=== PATIENT | male | born 1950 | race Caucasian/White ===

== ENCOUNTER → 2018-03-16 | Day surgery (SDC) | payer MEDICARE ==
[2018-03-15 10:00] LABS: BASOPHILS # (AUTO) 0.1 (0.0-0.1); BASOPHILS % 0.9 % (0.0-1.0); EOSINOPHILS # (AUTO) 0.2 (0.0-0.4); EOSINOPHILS % 2.6 % (0.0-6.0); HEMATOCRIT 43.4 % (38.2-49.6); HEMOGLOBIN 15.5 g/dL (14.0-18.0); LYMPHOCYTES # (AUTO) 1.2 (1.0-3.2); LYMPHOCYTES % 20.5 % (18.0-39.1); MEAN CORPUSCULAR HEMOGLOBIN 32.2 pg (28-32); MEAN CORPUSCULAR HGB CONC 35.7 g/dL (31-35); MEAN CORPUSCULAR VOLUME 90.2 fL (81-99); MONOCYTES # (AUTO) 0.3 (0.2-0.8); MONOCYTES % 5.6 % (4.4-11.3); NEUTROPHILS # (AUTO) 4.1 (2.1-6.9); NEUTROPHILS % 70.2 % (38.7-80.0); PLATELET COUNT 148 x10e3/uL (140-360); RED BLOOD COUNT 4.81 x10e6/uL (4.3-5.7); RED CELL DISTRIBUTION WIDTH 12.6 % (11.7-14.4)
[~2018-03-16] MED LIST: ALPRAZOLAM0.5 M1 PO; DICYCLOMINE HCL20 MG PO; FENTANYL CITRATE/PF 100MCG/2 ML INJ ONE; GABAPENTIN300 MG PO; LISINOPRIL-HCT1 EACH PO; METOCLOPRAMIDE10 MG PO; MIDAZOLAM HCL 2 MG/2 ML VIAL ONE; ONDANSETRON HCL INJ 2 MG/ML VIAL ONE; PANTOPRAZOLE SO40 MG PO; PROMETHAZINE HC25 M1 PO; PROPOFOL IV EMULSION 10 MG/ML 50 ML VIAL ONE; SUBOXONE 8 MG-1 EAC2 PO; ULTRAM50 MG PO; ZOCOR PO; ZOFRAN ODT4 MG PO
--- OUTSIDE RECORDS SUMMARY | 2018-03-16 14:16 | XMS REPORT ---
Author Author [facility] Address Unknown Phone Unavailable Care Team Providers Care Brand Analyst Name Role Phone URBAN BABIN Unavailable Unavailable Problems This patient has no known problems. Allergies, Adverse Reactions, Alerts This patient has no known allergies or adverse reactions. Medications This patient has no known medications. Results Test Description Test Time Test Comments Text Results Atomic Results Result Comments CT ABDOMEN/PELVIS W [place] [id number] Patient Name: GYPSY KHAN JR MR #: [id number] : 1950 Age/Sex: 66/M Req #: [id number] Adm Physician: Ordered by: URBAN BABIN MD Report #: [id number] Location: CT Room/Bed: Procedure: [id number] CT/CT ABDOMEN/PELVIS W Exam Date: Exam Time: REPORT STATUS: Signed PROCEDURE: CT ABDOMEN AND PELVIS WITH CONTRAST COMPARISON: None. INDICATIONS: Abdominal pain; diarrhea. TECHNIQUE: Routine protocol Volumetric CT abdomen and pelvis after administration of 100 mL Isovue-370 intravenous contrast and 900 mL enteric water. Multiplanar reformatted images. DLP: 221.78 FINDINGS: Clear lung bases. No pleural effusions. Normal heart size. Liver: Normal Gallbladder: Cholecystectomy. No bile duct dilation. Pancreas: Normal Spleen: Normal Adrenal glands: Normal Kidneys: 1.6 cm right renal cyst. Otherwise, normal bilaterally. Ureters and urinary bladder: Normal Prostate and seminal vesicles: Normal Bowel: Normal caliber. Normal appendix. Moderate stool volume. Peritoneum: Normal Vasculature: Moderate to severe atherosclerosis of the infrarenal abdo rainer aorta. Maximal infrarenal aortic AP diameter 2.3 cm, with a transverse diameter of 2.6 cm. Minimum internal diameter at when accounting for mural thrombus/noncalcified plaque 1 cm. A 1.4 x 1.3 x 1.2 cm focus of noncalcified atheromatous plaques present within the suprarenal aorta between the level of the celiac axis and SMA (image 17, series 2). Moderate calcified and nonca lcified atheromatous plaque at the origin of the left renal artery with at least 50% stenosis right length of 1 cm. The celiac and SMA are patent. The proximal KERON is diminutive. Moderate atherosclerosis of the common iliac arteries, with extensive coarse calcification of the distal left external iliac and proximal internal iliac arteries bilaterally. Greater than 60% stenosis of the distal right common iliac artery. At least 50% stenosis of the common femoral arteries bilaterally secondary to course posterior calcified plaque. Right superficial femoral artery occlusion. Lymph nodes: Normal Skeleton: Multilevel degenerative disc disease most prominent at L4-L5 and L5-S1 with questionable neural foramen stenosis on the left at L4-L5 and L5-S1 and on the right at L5-S1. There is lumbarization of S1. Soft tissues: Normal CONCLUSION: 1. There is extensive aortic atherosclerosis with infrarenal aortic ectasia up to 2.6 cm. The intraluminal diameter when accounting for mural thrombus/plaque in the minimum of 1 cm. Additionally, there is flow-limiting stenosis at the distal right common femoral artery and right superficial femoral artery occlusion. 2. There is noncalcified atheromatous plaque just above the level of the SMA. There is no evidence of SMA stenosis or occlusion recommend correlation for intermittent abdominal an vivian in the setting of recurrent abdominal pain, as intermittent emboli may be shed from noncalcified plaque. Dictated by: Kelsey Moreau M.D. on 04/30/2017 at 9:35 Electronically approved by: Kelsey Moreau M.D. on 04/30/2017 at 9:35 Dictated By: KELSEY MOREAU MD [id number] Transcribed By: EDDIE on 04/30/17934 COPY TO: URBAN BABIN MD
[2018-03-16 17:10] VITALS: BP 118/61
--- NOTE | 2018-05-10 14:41 | Operative Report ---
DATE OF PROCEDURE: March 16, 2018 REFERRING PHYSICIAN: Dr. Colin Amin PROCEDURES PERFORMED 1. Esophagogastroduodenoscopy with esophageal dilatation and biopsies. 2. Colonoscopy with polypectomy. INDICATIONS FOR EGD: Dysphagia and upper abdominal pain. INDICATIONS FOR COLONOSCOPY: Colorectal cancer screening. MEDICATION: Patient was done under MAC. Please see anesthesiologist's note. PROCEDURE: With the patient in the left lateral decubitus position, the flexible fiberoptic Olympus gastroscope was introduced into the esophagus under direct visualization without any difficulty. There was some patchy erythema noted in the distal esophagus. Minute tongues of velvety red mucosa were noted to extend proximally from the GE junction and biopsies were obtained to rule out Power's. There was a mild stricture noted at the GE junction that was dilated to size 52-Andorran Morris. The scope was then advanced with ease into the stomach. Mucosa overlying the antrum and the body revealed some patchy erythema and low-grade to moderate edema, and biopsies were obtained and sent to stain for H. pylori. Pylorus appeared to be of normal contour and shape. It was intubated with ease. The scope was advanced all the way to the 2nd portion of the duodenum. The scope was then withdrawn slowly. Mucosa overlying the proximal 2nd portion, as well as the duodenal bulb appeared to be within normal limits. The scope was then withdrawn back into the stomach and retroflexed. Mucosa overlying the fundus and the cardia appeared to be within normal limits. The scope was then straightened out. The scope was subsequently withdrawn. Patient tolerated the procedure well. IMPRESSION 1. Distal esophagitis. 2. Rule out Power's esophagus. 3. Esophageal stricture at gastroesophageal junction dilated to size 52-Andorran Morris. 4. Gastritis, biopsied. Biopsies sent to stain for Helicobacter pylori. PLAN: Follow up histology. Initiate Protonix 40 mg 1 p.o. q.a.m. a.c. b.i.d. Patient was then turned around. After adequate lubrication of the anal canal, a flexible fiberoptic Olympus colonoscope was inserted into the rectum with ease and advanced all the way to the cecum. Two polyps were hot biopsied. Polypectomy sites were hemoclipped in the cecum. The scope was then withdrawn slowly. One polyp was hot biopsied from the ascending colon. The transverse appeared to be within normal limits. One polyp was hot biopsied from the descending colon. One polyp was snared from the sigmoid colon. The scope was then retroflexed into the into the distal rectum and small internal hemorrhoids were noted, none of which was actively bleeding. Prep overall was suboptimal with retained stools in the colon. The scope was then withdrawn. Patient tolerated the procedure well. IMPRESSION 1. Cecal polyps, snared times 2, both polypectomy sites hemoclipped. 2. Ascending colon polyp, hot biopsied. 3. Descending colon polyp, hot biopsied. 4. Sigmoid colon polyp, snared. 5. Internal hemorrhoids, none actively bleeding. The prep was overall suboptimal. PLAN: Follow up histology. Initiate high-fiber and low-fat diet. Initiate high-fiber supplement. Patient will need a followup colonoscopy in 1-2 years due to the suboptimal prep and the presence of polyps. Job#: [id number] RI cc:Juan Carlos AMIN MD
== END | disposition home or self-care (01) ==
LOC: OR 13:05
PROVIDERS: ATTEND Internal Medicine Gastroenterology
DX: K92.1 Melena (principal); D12.0 Benign neoplasm of cecum; D12.4 Benign neoplasm of descending colon; D12.5 Benign neoplasm of sigmoid colon; K29.50 Unspecified chronic gastritis without bleeding; K22.2 Esophageal obstruction; K29.60 Other gastritis without bleeding; K20.9 Esophagitis, unspecified; K21.9 Gastro-esophageal reflux disease without esophagitis; I10 Essential (primary) hypertension; F41.9 Anxiety disorder, unspecified; F17.210 Nicotine dependence, cigarettes, uncomplicated; Z01.812 Encounter for preprocedural laboratory examination; Z01.810 Encounter for preprocedural cardiovascular examination; Z86.19 Personal history of other infectious and parasitic diseases
CPT/HCPCS: 36415; 43239; 43450; 45384; 45385; 85025; 88305; 88312; 93005; J2250; J2405; 45378

== ENCOUNTER 2019-02-15 15:14 | Emergency (ER) | payer MEDICARE ==
[~2019-02-15] VITALS: Ht 175.3 cm; Wt 59.0 kg
[~2019-02-15 15:14] MED LIST changes: -FENTANYL CITRATE/PF 100MCG/2 ML INJ ONE; -MIDAZOLAM HCL 2 MG/2 ML VIAL ONE; -ONDANSETRON HCL INJ 2 MG/ML VIAL ONE; -PROPOFOL IV EMULSION 10 MG/ML 50 ML VIAL ONE
[2019-02-15] MEDS ORDERED: SODIUM CHLORIDE 0.9% 1000ML 1,000 ML IV STA (15:34)
[2019-02-15] MEDS ORDERED: METHYLPREDNISOLONE SOD SUCC 125 MG/2ML VIAL IV STA (15:34)
[2019-02-15] MEDS ORDERED: FAMOTIDINE 20 MG/2 ML VIAL IV STA (15:34)
[2019-02-15] MEDS ORDERED: DIPHENHYDRAMINE HCL INJ 50 MG/ML VIAL IV ONE (15:45)
[2019-02-15 15:59] LABS: BASOPHILS # (AUTO) 0.1 (0.0-0.1); BASOPHILS % 0.7 % (0.0-1.0); EOSINOPHILS # (AUTO) 0.2 (0.0-0.4); EOSINOPHILS % 2.9 % (0.0-6.0); HEMOGLOBIN 15.3 g/dL (14.0-18.0); LYMPHOCYTES # (AUTO) 1.8 (1.0-3.2); LYMPHOCYTES % 25.8 % (18.0-39.1); MEAN CORPUSCULAR HEMOGLOBIN 32.7 pg (28-32); MEAN CORPUSCULAR HGB CONC 36.4 g/dL (31-35); MEAN CORPUSCULAR VOLUME 89.7 fL (81-99); MONOCYTES # (AUTO) 0.4 (0.2-0.8); MONOCYTES % 5.8 % (4.4-11.3); NEUTROPHILS # (AUTO) 4.5 (2.1-6.9); NEUTROPHILS % 64.7 % (38.7-80.0); PLATELET COUNT 162 x10e3/uL (140-360); RED BLOOD COUNT 4.68 x10e6/uL (4.3-5.7); RED CELL DISTRIBUTION WIDTH 12.4 % (11.7-14.4)
[2019-02-15 16:09] LABS: INR 0.84
[2019-02-15 16:10] LABS: PARTIAL THROMBOPLASTIN TIME 24.7 seconds (23.8-35.5)
[2019-02-15 16:19] LABS: ALANINE AMINOTRANSFERASE 17 IU/L (0-55); ALBUMIN 4.4 g/dL (3.5-5.0); ALBUMIN/GLOBULIN RATIO 1.1 (0.8-2.0); ALKALINE PHOSPHATASE 80 IU/L (40-150); ANION GAP 12.4 mmol/L (8-16); BLOOD UREA NITROGEN 24 mg/dL (7-26); BUN/CREATININE RATIO 21 (6-25); CALCIUM 10.3 mg/dL (8.4-10.2); CARBON DIOXIDE 29 mmol/L (22-29); CHLORIDE 99 mmol/L (98-107); CREATINE KINASE 48 IU/L (30-200); CREATININE, SERUM 1.13 mg/dL (0.72-1.25); EST GLOMERULAR FILTRATION RATE > 60 ML/MIN (60-); GLUCOSE 96 mg/dL (74-118); POTASSIUM 4.4 mmol/L (3.5-5.1); SODIUM 136 mmol/L (136-145)
--- NOTE | 2019-02-15 16:53 | Diagnostic Imaging Report ---
EXAMINATION: CHEST SINGLE (PORTABLE) INDICATION: Shortness of breath COMPARISON: None FINDINGS: LINES/TUBES:None LUNGS:The lungs are well-inflated. No focal consolidation or pulmonary edema. PLEURA:No pleural effusion or pneumothorax. MEDIASTINUM:The cardiomediastinal silhouette appears normal in size and shape. Atherosclerotic calcifications of the thoracic aorta. BONES/SOFT TISSUES:No acute osseous injury. ABDOMEN:No free air under the diaphragm. Status post cholecystectomy. IMPRESSION: No focal pneumonia or pulmonary edema. Signed by: Quynh Sidhu MD on 02/15/2019 4:50 PM
== END 2019-02-15 17:38 | disposition home or self-care (01) ==
LOC: ER 15:14
DX: T78.3XXA Angioneurotic edema, initial encounter (principal); I10 Essential (primary) hypertension; F32.9 Major depressive disorder, single episode, unspecified
CPT/HCPCS: 36415; 71045; 80053; 82550; 82553; 83518; 84484; 85025; 85610; 85730; 87070; 93005; 99284; J1200; J2930; J7030

== ENCOUNTER 2020-02-26 12:47 | Emergency (ER) | payer MEDICARE ==
[~2020-02-26] VITALS: Ht 175.3 cm; Wt 59.0 kg
[2020-02-26] MEDS ORDERED: ASPIRIN 81 MG CHEW TAB PO ONE (13:00)
[2020-02-26 13:07] LABS: BASOPHILS # (AUTO) 0.1 (0.0-0.1); BASOPHILS % 1.2 % (0.0-1.0); EOSINOPHILS # (AUTO) 0.2 (0.0-0.4); EOSINOPHILS % 2.5 % (0.0-6.0); HEMATOCRIT 43.9 % (38.2-49.6); HEMOGLOBIN 15.5 g/dL (14.0-18.0); LYMPHOCYTES # (AUTO) 2.2 (1.0-3.2); LYMPHOCYTES % 32.7 % (18.0-39.1); MEAN CORPUSCULAR HEMOGLOBIN 32.2 pg (28-32); MEAN CORPUSCULAR HGB CONC 35.3 g/dL (31-35); MEAN CORPUSCULAR VOLUME 91.1 fL (81-99); MONOCYTES # (AUTO) 0.5 (0.2-0.8); NEUTROPHILS # (AUTO) 3.8 (2.1-6.9); NEUTROPHILS % 56.3 % (38.7-80.0); PLATELET COUNT 185 x10e3/uL (140-360); RED BLOOD COUNT 4.82 x10e6/uL (4.3-5.7)
[2020-02-26 13:23] LABS: ALANINE AMINOTRANSFERASE 16 IU/L (0-55); ALBUMIN 4.6 g/dL (3.5-5.0); ALBUMIN/GLOBULIN RATIO 1.3 (0.8-2.0); ALKALINE PHOSPHATASE 84 IU/L (40-150); ANION GAP 10.7 mmol/L (8-16); BLOOD UREA NITROGEN 13 mg/dL (7-26); BUN/CREATININE RATIO 11 (6-25); CALCIUM 9.7 mg/dL (8.4-10.2); CARBON DIOXIDE 29 mmol/L (22-29); CHLORIDE 103 mmol/L (98-107); CREATINE KINASE 67 IU/L (30-200); CREATININE, SERUM 1.22 mg/dL (0.72-1.25); EST GLOMERULAR FILTRATION RATE 59 ML/MIN (60-); GLUCOSE 118 mg/dL (74-118); POTASSIUM 4.7 mmol/L (3.5-5.1); SODIUM 138 mmol/L (136-145)
--- NOTE | 2020-02-26 13:35 | Diagnostic Imaging Report ---
EXAMINATION: CHEST SINGLE (PORTABLE) INDICATION: Hypertension, chest pain COMPARISON: Chest radiograph 02/15/2019 FINDINGS: LINES/TUBES:None LUNGS:The lungs are well-inflated. No focal consolidation or pulmonary edema. PLEURA:No pleural effusion or pneumothorax. MEDIASTINUM:The cardiomediastinal silhouette appears normal in size and shape. Atherosclerotic calcifications of the thoracic aorta. BONES/SOFT TISSUES:No acute osseous injury. ABDOMEN:No free air under the diaphragm. IMPRESSION: No focal pneumonia or pulmonary edema. Signed by: Quynh Sidhu MD on 02/26/2020 1:31 PM
--- OUTSIDE RECORDS SUMMARY | 2020-02-26 14:13 | XMS REPORT | Continuity of Care Document ---
Author Author [facility] t Organization [facility] Address [address] [place] [address] Phone Unavailable Care Team Providers Care Time Checker Name Role Phone NONSTAFF PCP Unavailable SINDHU TARLIZZIE Attphys Unavailable SWEET, A LAIRD Attphys Unavailable BABIN, URBAN Attphys Unavailable Payers Payer Name Policy Type Policy Number Effective Date Expiration Date Ricardo YOON [id number] 2015 00:00:00 [facility] Medicare A & B [id number] 2013 00:00:00 [facility] Problems This patient has no known problems. Allergies, Adverse Reactions, Alerts Allergy Name Allergy Type Status Severity Reaction(s) Onset Date Inacti ve Date Treating Clinician Comments Source Lisinopril Allergy to Substance Active 2019-02-15 00:00:00 [facility] Medications Ordered Medication Name Filled Medication Name Start Date Stop Da te Current Medication? Ordering Clinician Indication Dosage Frequency Signature (SIG) Comments Components Source Alprazolam 0.5 Mg Tab.rapdis Alprazolam 0.5 Mg Tab.rapdis Y es .5 Twice A Day [facility] Dicyclomine Hcl 20 Mg Tablet Dicyclomine Hcl 20 Mg Tablet Y es 20 Twice A Day [facility] Lisinopril/Hydrochlorothiazide (Lisinopril-Hctz 20-12. 5 Mg Tab) 1 Each Tablet Lisinopril/Hydrochlorothiazide (Lisinopril-Hctz 20-12.5 Mg Tab) 1 Each Tablet Yes 1 Daily [facility] Ondansetron (Zofran Odt) 4 Mg Tab.rapdis Ondansetron ( Zofran Odt) 4 Mg Tab.rapdis Yes 4 As Needed [facility] Pantoprazole Sodium (Protonix) 40 Mg Tablet. Pantopr azole Sodium (Protonix) 40 Mg Tablet. Yes 40 Twice A Day [facility] Tramadol Hcl (Ultram) 50 Mg Tablet Tramadol Hcl (Ultram) 50 Mg Tablet Yes 50 As Needed [facility] Zocor Zocor Yes Bedtime [facility] Gabapentin 300 Mg Capsule, 300 Mg Oral Gabapentin 300 Mg Capsule , 300 Mg Oral 2018-03-15 00:00:00 No 300 Twice A Day [facility] Promethazine Hcl 25 Mg Tablet, 25 Mg Oral Promethazine Hcl 25 Mg Tablet, 25 Mg Oral 2018-03-15 00:00:00 No 25 Daily [facility] Alprazolam 0.5 Mg Tab.rapdis, 0.5 Mg Oral Alprazolam 0 .5 Mg Tab.rapdis, 0.5 Mg Oral 2016-01-17 00:00:00 No .5 Twice A Day [facility] Pantoprazole Sodium (Protonix) 40 Mg Tablet., 40 Mg Oral Pantoprazole Sodium (Protonix) 40 Mg Tablet.dr, 40 Mg Oral 2016-01-15 00:00:00 No 40 Twice A Day [facility] Metoclopramide Hcl 10 Mg Tablet, 10 Mg Oral Metoclopra mide Hcl 10 Mg Tablet, 10 Mg Oral 2015-08-21 00:00:00 No 10 Three Times A Da y [facility] Buprenorphine Hcl/Naloxone Hcl (Suboxone 8 Mg-2 Mg Sl Film) 1 Each Film, 1 Film Oral Buprenorphine Hcl/Naloxone Hcl (Suboxone 8 Mg-2 Mg Sl Film) 1 Each Film, 1 Film Oral 2015-08-20 00:00:00 No 1 Twice A Day [facility] Procedures This patient has no known procedures. Encounters Start Date/Time End Date/Time [facility]counter Type [facility] ID Source 2019-02-15 15:14:00 2019-02-15 17:38:00 Departed Emergency Room 1 ARMIDA ROCHA [facility] [id number] [facility] Results Test Description Test Time Test Comments Results Result Comments Source CHEST SINGLE (PORTABLE) 2020-02-26 13:31:00 [place] [address] Patient Name: GYPSY KHAN JR MR #: [id number] : 1950 Age/Sex: 69/M Req #: [id number] Adm Physician: Ordered by: DELROY MANLEY MD Report #: [id number] Location: ER Room/Bed: Procedure: [id number] DX/CHEST SINGLE (PORTABLE) Exam Date: 02/26/20 Exam Time: 1311 REPORT STATUS: Signed EXAMINATION: CHEST SINGLE (PORTABLE) INDICATION: Hypertension, chest pain COMPARISON: Chest radiograph 02/15/2019 FINDINGS: LINES/TUBES:None LUNGS:The lungs are well-inflated. No focal consolidation or pulmonary edema. PL EURA:No pleural effusion or pneumothorax. MEDIASTINUM:The cardiomediastinal silhouette appears normal in size and shape. Atherosclerotic calcifications of the thoracic aorta. BONES/SOFT TISSUES:No acute osseous injury. ABDOMEN:No free air under the diaphragm. IMPRESSION: No focal pneumonia or pulmonary edema. Signed by: Tierney Lezama MD on 02/26/2020 1:31 PM Dictated By: TIERNEY LEZAMA MD 1331 Transcribed By: NATHALIE on 02/26/20 1331 COPY TO: DELROY MANLEY MD CHEST SINGLE (PORTABLE) 2019-02-15 16:49:00 [place] [address] Patient Name: GYPSY KHAN JR MR #: [id number] : 1950 Age/Sex: 68/M Req #: [id number] Adm Physician: Ordered by: ARMIDA ROCHA MD Report #: [id number] Location: ER Room/Bed: Procedure: [id number] DX/CHEST SINGLE (PORTABLE) Exam Date: Exam Time: REPORT STATUS: Signed EXAMINATION: CHEST SINGLE (PORTABLE) INDICATION: Shortness of breath COMPARISON: None FINDINGS: LINES/TUBES:None LUNGS:The lungs are well-inflated. No focal consolidation or pulmonary edema. PLEURA:No pleural effusion or pneumothorax. MEDIASTINUM:The cardiomediastinal silhouette appears normal in size and shape. Atherosclerotic calcifications of the thoracic aorta. BONES/SOFT TISSUES:No acute osseous injury. ABDOMEN:No free air under the diaphragm. Status post cholecystectomy. IMPRESSION: No focal pneumonia or pulmonary edema. Signed by: Tierney Lezama MD on 02/15/2019 4:50 PM Dictated By: TIERNEY LEZAMA MD 49 Transcribed By: NATHALIE on 02/15/191649 COPY TO: ARMIDA ROCHA MD Creatine Kinase MB 2019-02-15 16:26:00 Test Item Creatine Kinase MB (test code = 28271-6) 1.40 0-5.0 [facility] [id number] 16:26:00* Test Item Value Reference Range Interpretation Comments Troponin I (test code = FIU1312) 0.008 0-0.300 [facility] Grmau0878-36-19 16:21:00* Test Item Value Reference Range Interpretation Comments Sodium Level (test code = 2951-2) 136 136-145 [facility]Potassium Hpclv6482-95-37 16:21:00* Test Item Value Reference Range Interpretation Comments Potassium Level (test code = 2823-3) 4.4 3.5-5.1 [facility] HospitalChloride Bwpzy6797-58-27 16:21:00* Test Item Value Reference Range Interpretation Comments Chloride Level (test code = 2075-0) 99 98-107 [facility] HospitalCarbon Dioxide Guskh5237-35-70 16:21:00* Test Item Value Reference Range Interpretation Comments Carbon Dioxide Level (test code = 2028-9) 29 22-29 [facility] HospitalAnion Agg6278-94-57 16:21:00* Test Item Value Reference Range Interpretation Comments Anion Gap (test code = 79479-1) 12.4 8-16 [facility] HospitalBlood Urea Lewzloit7772-56-90 16:21:00* Test Item Value Reference Range Interpretation Comments Blood Urea Nitrogen (test code = 3094-0) 24 7- [facility] HospitalCreatinine2019-09-25 16:21:00* Test Item Value Reference Range Interpretation Comments Creatinine (test code = 2160-0) 1.13 0.72-1.25 [facility] HospitalBUN/Creatinine Nzlbm2031-81-23 16:21:00* Test Item Value Reference Range Interpretation Comments BUN/Creatinine Ratio (test code = 3097-3) 21 6- [facility] HospitalEstimat Glomerular Filtration Rate 2019-02-15 16:21:00* Test Item Value Reference Range Interpretation Comments Estimat Glomerular Filtration Rate (test code = 119788532) > 60 >60 Ranges were taken from the National Kidney Disease Education Program and the [facility] Foundation literature.Reference ranges:60 or greater: Kqwqoo24-34 ( for 3 consecutive months): Chronic kidney disease 15 or less: Kidney failureNortheast Baptist HospitalGlucose Iwnoy5297-47-96 16:21:00* Test Item Value Reference Range Interpretation Comments Glucose Level (test code = NGV2218) 96 74-118 [facility] HospitalCalcium Ilwzo7062-56-75 16:21:00* Test Item Value Reference Range Interpretation Comments Calcium Level (test code = 96700-5) 10.3 8.4-10.2 H [facility] HospitalTotal Imxdwcucm9709-53-85 16:21:00* Test Item Value Reference Range Interpretation Comments Total Bilirubin (test code = 1975-2) 0.4 0.2-1.2 [facility] HospitalAspartate Amino Transf (AST/SGOT) 2019-02-15 16:21:00* Test Item Value Reference Range Interpretation Comments Aspartate Amino Transf (AST/SGOT) (test code = Aspartate Amino Transf (AST/SGOT)) 19 5-34 [facility] HospitalAlanine Aminotransferase (ALT/SGPT) 2019-02-15 16:21:00* Test Item Value Reference Range Interpretation Comments Alanine Aminotransferase (ALT/SGPT) (test code = 1742-6) 17 0-55 [facility] HospitalTotal Hbmijmt0643-30-21 16:21:00* Test Item Value Reference Range Interpretation Comments Total Protein (test code = 2885-2) 8.4 6.5-8.1 H [facility] HospitalAlbumin2019-09-25 16:21:00* Test Item Value Reference Range Interpretation Comments Albumin (test code = 1751-7) 4.4 3.5-5.0 [facility] HospitalGlobulin2019-09-25 16:21:00* Test Item Value Reference Range Interpretation Comments Globulin (test code = 38332-4) 4.0 2.3-3.5 H [facility] HospitalAlbumin/Globulin Dczlz7384-90-25 16:21:00 * Test Item Value Reference Range Interpretation Comments Albumin/Globulin Ratio (test code = 1759-0) 1.1 0.8-2.0 [facility] HospitalAlkaline Yfmaqscgjwr7748-01-65 16:21:00* Test Item Value Reference Range Interpretation Comments Alkaline Phosphatase (test code = 6768-6) 80 40-150 [facility] HospitalCreatine Yokmml8583-29-58 16:21:00* Test Item Value Reference Range Interpretation Comments Creatine Kinase (test code = 2157-6) 48 30-200 [facility] HospitalProthrombin Vjtz3241-16-86 16:14:00* Test Item Value Reference Range Interpretation Comments Prothrombin Time (test code = 5902-2) 12.0 11.9-14.5 [facility] HospitalProthromb Time International Ratio 2019-02-15 16:14:00* Test Item Value Reference Range Interpretation Comments Prothromb Time International Ratio (test code = 6301-6) 0.84 Oral Anticoagulant Therapy INR Values:1. Low Intensity Therapy 1.5 - 2.02 . Moderate Intensity Therapy 2.0 - 3.03. High Intensity Therapy(1) 2.5 - 3. 54. High Intensity Therapy(2) 3.0 - 4.05. Panic Value INR > 5.0 [facility] HospitalActivated Partial Thromboplast Time 2019-02-15 16:14:00* Test Item Value Reference Range Interpretation Comments Activated Partial Thromboplast Time (test code = 50185-9) 24.7 23.8-35.5 [facility] HospitalGroup A Streptococcus Nlzphn0016-87-31 16:07:00* Test Item Value Reference Range Interpretation Comments Group A Streptococcus Screen (test code = 55517-3) NEGATIVE NEG ATIVE [facility] HospitalWhite Blood Jplof1921-84-41 16:01:00* Test Item Value Reference Range Interpretation Comments White Blood Count (test code = 6690-2) 7.01 4.8-10.8 [facility] HospitalRed Blood Yoogc1498-34-83 16:01:00* Test Item Value Reference Range Interpretation Comments Red Blood Count (test code = 789-8) 4.68 4.3-5.7 [facility] HospitalHemoglobin2019-09-25 16:01:00* Test Item Value Reference Range Interpretation Comments Hemoglobin (test code = 53823-2) 15.3 14.0-18.0 [facility] HospitalHematocrit2019-09-25 16:01:00* Test Item Value Reference Range Interpretation Comments Hematocrit (test code = 4544-3) 42.0 38.2-49.6 [facility] HospitalMean Corpuscular Upjjhc0196-62-64 16:01:00* Test Item Value Reference Range Interpretation Comments Mean Corpuscular Volume (test code = 787-2) 89.7 81-99 [facility] HospitalMean Corpuscular Sfbjrzwzsu4236-78-32 16:01:00* Test Item Value Reference Range Interpretation Comments Mean Corpuscular Hemoglobin (test code = 785-6) 32.7 28-32 H [facility] HospitalMean Corpuscular Hemoglobin Concent 2019-02-15 16:01:00* Test Item Value Reference Range Interpretation Comments Mean Corpuscular Hemoglobin Concent (test code = 786-4) 36.4 31-35 H [facility] HospitalRed Cell Distribution Cepnm8127-18-20 16:01:00* Test Item Value Reference Range Interpretation Comments Red Cell Distribution Width (test code = 56955-5) 12.4 11.7 -14.4 [facility] HospitalPlatelet Vyxig0487-42-31 16:01:00* Test Item Value Reference Range Interpretation Comments Platelet Count (test code = 777-3) 162 140-360 [facility] HospitalNeutrophils (%) (Auto)2019-02-15 16:01:00 * Test Item Value Reference Range Interpretation Comments Neutrophils (%) (Auto) (test code = 01318-8) 64.7 38.7-80.0 [facility] HospitalLymphocytes (%) (Auto)2019-02-15 16:01:00 * Test Item Value Reference Range Interpretation Comments Lymphocytes (%) (Auto) (test code = 736-9) 25.8 18.0-39.1 [facility] HospitalMonocytes (%) (Auto)2019-02-15 16:01:00* Test Item Value Reference Range Interpretation Comments Monocytes (%) (Auto) (test code = 5905-5) 5.8 4.4-11.3 [facility] HospitalEosinophils (%) (Auto)2019-02-15 16:01:00 * Test Item Value Reference Range Interpretation Comments Eosinophils (%) (Auto) (test code = 713-8) 2.9 0.0-6.0 [facility] HospitalBasophils (%) (Auto)2019-02-15 16:01:00* Test Item Value Reference Range Interpretation Comments Basophils (%) (Auto) (test code = 706-2) 0.7 0.0-1.0 [facility] HospitalIM GRANULOCYTES %2019-02-15 16:01:00* Test Item Value Reference Range Interpretation Comments IM GRANULOCYTES % (test code = IM GRANULOCYTES %) 0.1 0.0- 1.0 [facility] HospitalNeutrophils # (Auto)2019-02-15 16:01:00* Test Item Value Reference Range Interpretation Comments Neutrophils # (Auto) (test code = 751-8) 4.5 2.1-6.9 [facility] HospitalLymphocytes # (Auto)2019-02-15 16:01:00* Test Item Value Reference Range Interpretation Comments Lymphocytes # (Auto) (test code = 62776-7) 1.8 1.0-3.2 [facility] HospitalMonocytes # (Auto)2019-02-15 16:01:00* Test Item Value Reference Range Interpretation Comments Monocytes # (Auto) (test code = 742-7) 0.4 0.2-0.8 [facility] HospitalEosinophils # (Auto)2019-02-15 16:01:00* Test Item Value Reference Range Interpretation Comments Eosinophils # (Auto) (test code = 711-2) 0.2 0.0-0.4 [facility] HospitalBasophils # (Auto)2019-02-15 16:01:00* Test Item Value Reference Range Interpretation Comments Basophils # (Auto) (test code = 704-7) 0.1 0.0-0.1 [facility] HospitalAbsolute Immature Granulocyte (auto 2019-02-15 16:01:00* Test Item Value Reference Range Interpretation Comments Absolute Immature Granulocyte (auto (sanchez t code = Absolute Immature Granulocyte (auto) 0.01 0-0.1 [facility] HospitalCT [facility] [address] [place] [address] Patient Name: GYPSY KHAN JR MR #: [id number] : 1950 Age/[facility]: 66[id number] Req #: [id number] [facility] Physician: Ordered by: URBAN BABIN MD Report #: [id number] Location: CT Room/Bed: Procedure: [id number] CT/CT ABDOMEN/PELVIS W Ex am Date: Exam Time: REPORT STATUS: Signed PROCEDURE: CT ABDOMEN AND PELVIS WITH CONTRAST COMPARISON: None. INDICAT IONS: Abdominal pain; diarrhea. TECHNIQUE: Routine protocol Volumetric C T abdomen and pelvis after administration of 100 mL Isovue-370 intravenous co ntrast and 900 mL enteric water. Multiplanar reformatted images. DLP: 221.78 FINDINGS: Clear lung bases. No pleural effusions. Normal heart size. Liver: Normal Gallbladder: Cholecystectomy. No bile duct dilation. Pancre as: Normal Spleen: Normal Adrenal glands: Normal Kidneys: 1.6 cm right renal cyst. Otherwise, normal bilaterally. Ureters and urinary bladder: Normal Prostate and seminal vesicles: Normal Bowel: Normal caliber. Normal ap pendix. Moderate stool volume. Peritoneum: Normal Vasculature: Mod erate to severe atherosclerosis of the infrarenal abdominal aorta. Maximal in frarenal aortic AP diameter 2.3 cm, with a transverse diameter of 2.6 cm. Min imum internal diameter at when accounting for mural thrombus/noncalcified martin que 1 cm. A 1.4 x 1.3 x 1.2 cm focus of noncalcified atheromatous plaques pre sent within the suprarenal aorta between the level of the celiac axis and SMA (image 17, series 2). Moderate calcified and noncalcified atheromatous martin que at the origin of the left renal artery with at least 50% stenosis right l ength of 1 cm. The celiac and SMA are patent. The proximal KERON is diminutive. Moderate atherosclerosis of the common iliac arteries, with extensive c oarse calcification of the distal left external iliac and proximal internal i liac arteries bilaterally. Greater than 60% stenosis of the distal right comm on iliac artery. At least 50% stenosis of the common femoral arteries bilater ally secondary to course posterior calcified plaque. Right superficial femora l artery occlusion. Lymph nodes: Normal Skeleton: Multilevel degenerativ e disc disease most prominent at L4-L5 and L5-S1 with questionable neural for amen stenosis on the left at L4-L5 and L5-S1 and on the right at L5-S1. There is lumbarization of S1. Soft tissues: Normal CONCLUSION: 1. There is extensive aortic atherosclerosis with infrarenal aortic ectasia up to 2.6 cm. The intraluminal diameter when accounting for mural thrombus/plaque in th e minimum of 1 cm. Additionally, there is flow-limiting stenosis at the dista l right common femoral artery and right superficial femoral artery occlusion. 2. There is noncalcified atheromatous plaque just above the level of t he SMA. There is no evidence of SMA stenosis or occlusion recommend correlati on for intermittent abdominal angina in the setting of recurrent abdominal pa in, as intermittent emboli may be shed from noncalcified plaque. Di ctated by: Kelsey Moreau M.D. on 04/30/2017 at 9:35 Electronically approved by: Kelsey Moreau M.D. on 04/30/2017 at 9:35 Dictated By: KELSEY MOREAU MD COPY TO: JOSE ANGEL BABIN MD
--- NOTE | 2020-02-26 14:51 | Emergency Department Note ---
History of Present Illnes History of Present Illness Chief Complaint: Chest Pain History of Present Illness This is a 69 year old male . Chief Complaint Comment PT STATES HE HAS BEEN HAVING CHEST PAIN FOR "A WHILE" NOW, BUT IT HAS BECOME WORSE SINCE YESTERDAY. PT ENDORSES SOB WELL, BUT STATES HE IS ALSO A SMOKER. PT STATES HIS PCP IS OLAF. 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 PT STATES HX HTN AND IS CURRENT SMOKER Historian: Patient Arrival Mode: Car Onset (how long ago): day(s) (1) Location: CHEST Quality: DULL Radiation: Denies non-radiation, Denies back, Denies neck, Denies extremity, Denies abdomen, Denies periumbilical, Denies flank, Denies proximal, Denies distal, Denies other Severity: mild Onset quality: gradual Duration (how long): day(s) (1) Progression: waxing and waning Chronicity: new Context: Denies recent illness, Denies recent surgery, Denies recent immobilization, Denies recent travel, Denies trauma/injury, Denies new medications, Denies hx of DVT/PE, Denies non-compliance w/ medications, Denies other Relieving factors: none Exacerbating factors: none Associated symptoms: Denies denies other symptoms, Denies confusion, Denies chest pain, Denies cough, Denies diaphoresis, Denies fever/chills, Denies headaches, Denies loss of appetite, Denies malaise, Denies nausea/vomiting, Denies rash, Denies seizure, Denies shortness of breath, Denies syncope, Denies weakness, Denies other Treatments prior to arrival: none Past Medical/Family History Physician Review I have reviewed the patient's past medical and family history. Any updates have been documented here. Past Medical History Recent Fever: No Clinical Suspicion of Infectio: No New/Unexplained Change in Ment: No Past Medical History: Hypertension, Hyperlipedemia Other Medical History: DEPRESSION Past Surgical History: Cholecysctectomy Other Surgery: TRACHEOTOMY Social History Smoking Cessation: Current every day smoker Counseling Performed: No Alcohol Use: None Any Illegal Drug Use: No Physically hurt or threatened: No Other Last Tetanus: UNKNOWN Any Pre-Existing Lines (PICC,: No Review of Systems Review of Systems Constitutional: Reports no symptoms EENTM: Reports no symptoms Cardiovascular: Reports as per HPI Respiratory: Reports no symptoms Gastrointestinal: Reports no symptoms Genitourinary: Reports no symptoms Musculoskeletal: Reports no symptoms Integumentary: Reports no symptoms Neurological: Reports no symptoms Psychological: Reports no symptoms Endocrine: Reports no symptoms Hematological/Lymphatic: Reports no symptoms Physical Exam Related Data Allergies: Coded Allergies: lisinopril (Verified Allergy, Unknown, 02/15/19) Triage Vital Signs Vital Signs Date Time Temp Pulse Resp B/P (MAP) Pulse Ox O2 Delivery O2 Flow Rate FiO2 02/26/20 12:54 98.3 56 14 178/82 100 Room Air Vital signs reviewed: Yes Physical Exam CONSTITUTIONAL Constitutional: Present well-developed, Present well-nourished HENT HENT: Present normocephalic, Present atraumatic, Present oropharynx clear/moist, Present nose normal HENT L/R: Present left ext ear normal, Present right ext ear normal EYES Eyes: Reports PERRL, Reports conjunctivae normal NECK Neck: Present ROM normal; Absent supple, Absent thyromegaly, Absent tracheal deviation, Absent stridor, Absent JVD, Absent cervical adenopathy, Absent carotid bruit, Absent other PULMONARY Pulmonary: Present effort normal, Present breath sounds normal; Absent respiratory distress, Absent rales, Absent rhonchi, Absent chest tenderness, Absent other CARDIOVASCULAR Cardiovascular: Present regular rhythm, Present heart sounds normal, Present capillary refill normal, Present normal rate; Absent irregular rhythm, Absent intact distal pulses, Absent tachycardia, Absent bradycardia, Absent murmur, Absent gallop, Absent friction rub, Absent palpable pulses, Absent strong pulses, Absent weak pulses, Absent LLE edema, Absent RLE edema, Absent other GASTROINTESTINAL Abdominal: Present soft, Present nontender, Present bowel sounds normal GENITOURINARY Genitourinary: Present exam deferred SKIN Skin: Present warm, Present dry; Absent erythema, Absent pale, Absent rash, Absent jaundiced, Absent bruising, Absent lesion, Absent other MUSCULOSKELETAL Musculoskeletal: Present ROM normal; Absent edema, Absent deformity, Absent tenderness, Absent swelling, Absent other NEUROLOGICAL Neurological: Present alert, Present oriented x 3, Present no gross motor or sensory deficits PSYCHOLOGICAL Psychological: Present mood/affect normal, Present judgement normal Results Laboratory Result Diagram: 02/26/20 1255 02/26/20 1255 Laboratory Laboratory Tests Test 02/26/20 12:55 White Blood Count 6.72 x10e3/uL (4.8-10.8) Red Blood Count 4.82 x10e6/uL (4.3-5.7) Hemoglobin 15.5 g/dL (14.0-18.0) Hematocrit 43.9 % (38.2-49.6) Mean Corpuscular Volume 91.1 fL (81-99) Mean Corpuscular Hemoglobin 32.2 pg (28-32) Mean Corpuscular Hemoglobin Concent 35.3 g/dL (31-35) Red Cell Distribution Width 13.0 % (11.7-14.4) Platelet Count 185 x10e3/uL (140-360) Neutrophils (%) (Auto) 56.3 % (38.7-80.0) Lymphocytes (%) (Auto) 32.7 % (18.0-39.1) Monocytes (%) (Auto) 7.0 % (4.4-11.3) Eosinophils (%) (Auto) 2.5 % (0.0-6.0) Basophils (%) (Auto) 1.2 % (0.0-1.0) Neutrophils # (Auto) 3.8 (2.1-6.9) Lymphocytes # (Auto) 2.2 (1.0-3.2) Monocytes # (Auto) 0.5 (0.2-0.8) Eosinophils # (Auto) 0.2 (0.0-0.4) Basophils # (Auto) 0.1 (0.0-0.1) Absolute Immature Granulocyte (auto 0.02 x10e3/uL (0-0.1) Sodium Level 138 mmol/L (136-145) Potassium Level 4.7 mmol/L (3.5-5.1) Chloride Level 103 mmol/L (98-107) Carbon Dioxide Level 29 mmol/L (22-29) Anion Gap 10.7 mmol/L (8-16) Blood Urea Nitrogen 13 mg/dL (7-26) Creatinine 1.22 mg/dL (0.72-1.25) Estimat Glomerular Filtration Rate 59 ML/MIN (60-) BUN/Creatinine Ratio 11 (6-25) Glucose Level 118 mg/dL (74-118) Calcium Level 9.7 mg/dL (8.4-10.2) Total Bilirubin 0.7 mg/dL (0.2-1.2) Aspartate Amino Transf (AST/SGOT) 21 IU/L (5-34) Alanine Aminotransferase (ALT/SGPT) 16 IU/L (0-55) Alkaline Phosphatase 84 IU/L (40-150) Creatine Kinase 67 IU/L (30-200) Creatine Kinase MB 1.00 ng/mL (0-5.0) Troponin I < 0.001 ng/mL (0-0.300) Total Protein 8.1 g/dL (6.5-8.1) Albumin 4.6 g/dL (3.5-5.0) Globulin 3.5 g/dL (2.3-3.5) Albumin/Globulin Ratio 1.3 (0.8-2.0) Lab results reviewed: Yes Imaging Imaging results reviewed: Yes Procedures 12 Lead ECG Interpretation ECG Interpretation : ECG: ECG 1 Intelligence Chief: Interpreted by ED physician Date: Feb 26, 2020 Time: 12:55 Rhythm: sinus bradycardia Rate: normal BPM: 53 QRS axis: normal ST segments normal: Yes T waves normal: Yes Assessment & Plan Medical Decision Making MDM ANGINA ACS Reassessment Reassessment time: 14:50 Reassessment BETTER, REFUSED ADMISSION DISCUSSED ALL THE RISKS Assessment & Plan Final Impression: (1) Chest pain Depart Disposition: HOME, SELF-CARE Last Vital Signs Date Time Temp Pulse Resp B/P (MAP) Pulse Ox O2 Delivery O2 Flow Rate FiO2 02/26/20 14:46 50 16 169/71 96 Room Air 02/26/20 12:54 98.3 Home Meds Reported Medications [Zocor] No Conflict Check, PO HS 03/15/18 Ondansetron (ZOFRAN ODT) 4 Mg Tab.rapdis, 4 MG PO PRN, TAB 03/15/18 Pantoprazole Sodium* (PROTONIX) 40 Mg Tablet.dr, 40 MG PO BID, TAB 03/15/18 Dicyclomine Hcl (DICYCLOMINE HCL) 20 Mg Tablet, 20 MG PO BID, TAB 01/15/16 Tramadol Hcl (ULTRAM) 50 Mg Tablet, 50 MG PO PRN, TAB 08/20/15 Lisinopril/Hydrochlorothiazide (LISINOPRIL-HCTZ 20-12.5 MG TAB) 1 Each Tablet, 1 TAB PO DAILY 07/19/14 Alprazolam (ALPRAZOLAM) 0.5 Mg Tab.rapdis, 0.5 MG PO BID 07/19/14 Medications in the ED Aspirin 81 mg PRN ONCE PO Last administered on 02/26/20at 14:08; Admin Dose 81 MG; Start 02/26/20 at 13:00; Stop 02/26/20 at 13:17; Status DC DELROY MANLEY MD Feb 26, 2020 14:51
--- NOTE | 2020-02-26 14:57 | NUR ---
PT DISCUSSED WITH MD THAT HE DOES NOT WISH TO BE ADMITTED. PER MD, PT TO BE DISCHARGED AT THIS TIME.
== END 2020-02-26 15:07 | disposition home or self-care (01) ==
LOC: ER 14:10
DX: R07.9 Chest pain, unspecified (principal); R06.02 Shortness of breath; I10 Essential (primary) hypertension; E78.5 Hyperlipidemia, unspecified; F32.9 Major depressive disorder, single episode, unspecified; F17.210 Nicotine dependence, cigarettes, uncomplicated
CPT/HCPCS: 36415; 71045; 80053; 82550; 82553; 84484; 85025; 93005; 99284

== ENCOUNTER → 2020-03-20 | Outpatient (CLI) | payer MEDICARE ==
--- NOTE | 2020-03-20 09:58 | Diagnostic Imaging Report ---
EXAM: HIP RIGHT 2-3 VW (+/- PELVIS) DATE: 03/20/2020 9:34 AM INDICATION: Right hip pain COMPARISON: None FINDINGS: There is no evidence for acute fracture or dislocation. No focal lytic or blastic abnormality is identified. There are degenerative changes of the right hip with moderate joint space narrowing and associated subchondral sclerosis. Degenerative also noted of the visualized lumbosacral spine and left hip. Vascular calcifications noted. The surrounding soft tissues are otherwise unremarkable. IMPRESSION: No acute radiographic abnormality identified of the right hip. Degenerative changes as above. Signed by: Dr. Zack Ansari MD on 03/20/2020 9:54 AM
== END ==
LOC: RAD 09:15
PROVIDERS: ATTEND Student in an Organized Health Care Education/Training Program
DX: M25.551 Pain in right hip (principal); M54.17 Radiculopathy, lumbosacral region

== ENCOUNTER → 2020-03-21 | Outpatient (CLI) | payer MEDICARE ==
--- NOTE | 2020-03-21 17:08 | Diagnostic Imaging Report ---
History: Low back pain radiates to right hip Comparison studies: None Technique: Sagittal, axial coronal T2, sagittal T1 and IR, axial spin density oblique. Intravenous contrast: None Findings: Number of lumbar vertebral bodies: 5. Alignment: Straining of the usual lumbar lordosis. No scoliosis. Soft tissues: No T2 hyperintense inflammatory changes. Paraspinal muscles: No signal abnormalities. Well-preserved. No atrophic changes Lower thoracic cord: Normal in signal and morphology. The tip of the conus is at L1. Cauda equina: No masses. No arachnoiditis. Vertebrae: No compression fractures, infection or neoplasm. Degenerative changes: T10-T11 and T12-L1: Mildly degenerated disks. Patent canal and foramina. L1-L2: Mildly degenerated disc. Mild facet arthrosis with mild left foraminal stenosis. Patent canal and right foramen. L2-L3: Mildly degenerated disc. Disc bulge with superimposed 4 mm right subarticular disc extrusion exerts mass effect on the right L3 nerve root. Disc bulge, thickened ligamentum flavum and bilateral facet arthrosis contribute to mild canal stenosis and mild bilateral foraminal stenosis. L3-L4: Symmetric disc bulge and bilateral facet arthrosis and ureter mild bilateral foraminal stenosis. No significant canal stenosis. L4-L5: Mildly degenerated disc. Symmetric disc osteophyte complex, thickened ligamentum flavum and bilateral facet arthrosis contribute to mild canal stenosis, bilateral subarticular recess stenosis with potential impingement on the bilateral L5 nerve roots roots and moderate left and mild right foraminal stenosis. L5-S1: Severely degenerated disc with mild reactive degenerative endplate changes and small T2 hyperintense Schmorl's node along the inferior L5 endplate. Disc-osteophyte complex, thickened ligamentum flavum and bilateral facet arthrosis contribute to bilateral subarticular recess stenosis with potential impingement on the bilateral S1 nerve roots and moderate right and mild left foraminal stenosis. No significant canal stenosis. Incidental findings: Right interpolar 2.0 cm renal cyst. Right inferior pole 2.0 cm renal cyst. IMPRESSION: 1. Multilevel disc degeneration, greatest at L5-S1. 2. Small right L2-L3 subarticular disc extrusion exerts mass effect on the right L3 nerve root. 3. Degenerative subarticular recess stenosis at L4-L5 and L5-S1 with potential impingement on the bilateral L5 and S1 nerve root. 4. Moderate degenerative foraminal stenosis on the left at L4-L5 and on the right L5-S1. Signed by: Dr. Reji Beck M.D. on 03/21/2020 5:05 PM
== END ==
LOC: MRI 14:04
PROVIDERS: ATTEND Student in an Organized Health Care Education/Training Program
DX: M54.17 Radiculopathy, lumbosacral region (principal); M25.551 Pain in right hip
CPT/HCPCS: 72148

== ENCOUNTER → 2021-06-27 | Outpatient (CLI) | payer MEDICARE ==
[~2021-06-27] MED LIST changes: +IOPAMIDOL 370 MG/ML 200 ML INFUS..BTL INJ ONE; +SODIUM CHLORIDE 0.9% 50ML 50 ML ONE
[2021-06-27 12:10] LABS: CREATININE, SERUM 1.11 mg/dL (0.72-1.25)
== END ==
LOC: CT 11:12
PROVIDERS: ATTEND Internal Medicine Gastroenterology
DX: R10.84 Generalized abdominal pain (principal); R63.4 Abnormal weight loss
CPT/HCPCS: 36415; 74177; 82565; 84520; Q9967

== ENCOUNTER → 2022-08-12 | Day surgery (SDC) | payer MEDICARE ==
[2022-08-10 11:33] LABS: BASOPHILS % 0.7 % (0.0-1.0); EOSINOPHILS # (AUTO) 0.3 (0.0-0.4); EOSINOPHILS % 6.9 % (0.0-6.0); HEMATOCRIT 38.1 % (38.2-49.6); HEMOGLOBIN 12.9 g/dL (14.0-18.0); LYMPHOCYTES # (AUTO) 1.1 (1.0-3.2); LYMPHOCYTES % 26.1 % (18.0-39.1); MEAN CORPUSCULAR HEMOGLOBIN 29.9 pg (28-32); MEAN CORPUSCULAR HGB CONC 33.9 g/dL (31-35); MEAN CORPUSCULAR VOLUME 88.4 fL (81-99); MONOCYTES # (AUTO) 0.3 (0.2-0.8); MONOCYTES % 8.1 % (4.4-11.3); NEUTROPHILS # (AUTO) 2.4 (2.1-6.9); RED BLOOD COUNT 4.31 x10e6/uL (4.3-5.7); RED CELL DISTRIBUTION WIDTH 13.4 % (11.7-14.4)
[2022-08-10 11:53] LABS: PLATELET COUNT 36 x10e3/uL (140-360)
[~2022-08-12] MED LIST changes: +AMLODIPINE BESYL5 MG PO; +ASPIRIN81 MG PO; +CARVEDILOL12.5 MG PO; +CLOPIDOGREL75 MG PO; +COREG12.5 MG PO; +CRESTOR10 MG PO; -IOPAMIDOL 370 MG/ML 200 ML INFUS..BTL INJ ONE; +LACTATED RINGER'S 1,000 ML ONE; +LIPITOR10 MG PO; +METOCLOPRAMIDE HCL 10 MG/2ML VIAL ONE; +PLAVIX75 MG PO; +POVIDONE IODINE 0.05% 0.05 % ML PO ONE; +PRO BIOTIC PO; +PROPOFOL IV EMULSION 10 MG/ML 20 ML VIAL ONE; +PROTONIX20 MG PO; +SODIUM CHLORIDE 0.9% 1000ML 1,000 ML ONE; +SODIUM CHLORIDE 0.9% 250ML 250 ML ONE; -SODIUM CHLORIDE 0.9% 50ML 50 ML ONE; +TRAZODONE HCL50 MG PO; +ULTRAM 50MG50 MG PO; +XANAX1 MG PO
[2022-08-12 14:10] VITALS: BP 142/73
== END | disposition home or self-care (01) ==
LOC: MERGE 08:21 → OR 08:21
PROVIDERS: ATTEND Internal Medicine Gastroenterology
DX: K22.70 Barrett's esophagus without dysplasia (principal); K29.50 Unspecified chronic gastritis without bleeding; K29.60 Other gastritis without bleeding; A04.8 Other specified bacterial intestinal infections; Z71.3 Dietary counseling and surveillance; I10 Essential (primary) hypertension; E78.00 Pure hypercholesterolemia, unspecified; Z88.8 Allergy status to other drugs, medicaments and biological substances; Z01.812 Encounter for preprocedural laboratory examination; Z79.02 Long term (current) use of antithrombotics/antiplatelets; Z79.82 Long term (current) use of aspirin; Z79.899 Other long term (current) drug therapy; Z86.19 Personal history of other infectious and parasitic diseases; Z86.010 Personal history of colon polyps
CPT/HCPCS: 36415 ×2; 43239; 85025; 85049; 86900; 88305; 88342; C9113; J2704; J2765; J7030; J7050; J7121; P9034; 88304; 88312

== ENCOUNTER 2022-08-19 10:21 | Inpatient (IN) | payer MEDICARE ==
[~2022-08-19] VITALS: Ht 175.3 cm; Wt 59.0 kg
[~2022-08-19 10:21] MED LIST changes: -LACTATED RINGER'S 1,000 ML ONE; -METOCLOPRAMIDE HCL 10 MG/2ML VIAL ONE; -POVIDONE IODINE 0.05% 0.05 % ML PO ONE; -PROPOFOL IV EMULSION 10 MG/ML 20 ML VIAL ONE; -SODIUM CHLORIDE 0.9% 1000ML 1,000 ML ONE; -SODIUM CHLORIDE 0.9% 250ML 250 ML ONE
[2022-08-19 11:24] LABS: EOSINOPHILS # (AUTO) 0.3 (0.0-0.4); EOSINOPHILS % 7.1 % (0.0-6.0); HEMATOCRIT 39.1 % (38.2-49.6); HEMOGLOBIN 13.3 g/dL (14.0-18.0); LYMPHOCYTES # (AUTO) 0.9 (1.0-3.2); MEAN CORPUSCULAR HEMOGLOBIN 29.9 pg (28-32); MEAN CORPUSCULAR VOLUME 87.9 fL (81-99); MONOCYTES # (AUTO) 0.3 (0.2-0.8); MONOCYTES % 7.1 % (4.4-11.3); NEUTROPHILS # (AUTO) 2.6 (2.1-6.9); NEUTROPHILS % 63.6 % (38.7-80.0); RED BLOOD COUNT 4.45 x10e6/uL (4.3-5.7); RED CELL DISTRIBUTION WIDTH 13.2 % (11.7-14.4)
[2022-08-19 11:31] LABS: PLATELET COUNT 40 x10e3/uL (140-360)
[2022-08-19 11:35] LABS: PARTIAL THROMBOPLASTIN TIME 26.8 seconds (23.8-35.5); PROTHROMBIN TIME 13.7 seconds (11.9-14.5)
[2022-08-19 11:47] LABS: ALBUMIN 4.1 g/dL (3.5-5.0); ALBUMIN/GLOBULIN RATIO 1.2 (0.8-2.0); ANION GAP 12.9 mmol/L (8-16); CALCIUM 9.3 mg/dL (8.4-10.2); CREATININE, SERUM 0.91 mg/dL (0.72-1.25); POTASSIUM 3.9 mmol/L (3.5-5.1)
[2022-08-19 13:54] VITALS: BP 184/93
[2022-08-19 14:00] VITALS: BP 184/93
[2022-08-19 16:02] VITALS: BP 157/86
[2022-08-19] MEDS ORDERED: TRAMADOL HCL 50 MG TAB PO PRN (17:45)
[2022-08-19] MEDS: CARVEDILOL 12.5 MG TAB PO SCH (18:06)
[2022-08-19] MEDS: AMLODIPINE BESYLATE 5 MG TAB PO SCH (18:06)
[2022-08-19] MEDS ORDERED: IOPAMIDOL 370 MG/ML 100 ML INFUS..BTL INJ ONE (18:16)
[2022-08-19 18:34] LABS: EOSINOPHILS # (AUTO) 0.3 (0.0-0.4); EOSINOPHILS % 7.5 % (0.0-6.0); HEMATOCRIT 38.6 % (38.2-49.6); LYMPHOCYTES # (AUTO) 1.2 (1.0-3.2); LYMPHOCYTES % 27.9 % (18.0-39.1); MEAN CORPUSCULAR HEMOGLOBIN 29.8 pg (28-32); MEAN CORPUSCULAR HGB CONC 33.7 g/dL (31-35); MEAN CORPUSCULAR VOLUME 88.5 fL (81-99); MONOCYTES # (AUTO) 0.3 (0.2-0.8); MONOCYTES % 7.5 % (4.4-11.3); NEUTROPHILS # (AUTO) 2.3 (2.1-6.9); NEUTROPHILS % 55.6 % (38.7-80.0); RED BLOOD COUNT 4.36 x10e6/uL (4.3-5.7); RED CELL DISTRIBUTION WIDTH 13.3 % (11.7-14.4)
[2022-08-19 18:37] LABS: PLATELET COUNT 42 x10e3/uL (140-360)
[2022-08-19 19:44] LABS: PLATELET ESTIMATE MARKEDLY DECREASED; PLATELET MORPHOLOGY COMMENT NORMAL; RBC MORPHOLOGY COMMENT NORMAL
[2022-08-19 20:00] VITALS: BP 147/63
[2022-08-19 20:28] VITALS: BP 147/83
[2022-08-19] MEDS: ATORVASTATIN 20 MG TAB PO SCH (21:15)
[2022-08-20 00:57] VITALS: BP 151/78
[2022-08-20 05:54] LABS: BASOPHILS # (AUTO) 0.1 (0.0-0.1); BASOPHILS % 1.3 % (0.0-1.0); EOSINOPHILS # (AUTO) 0.4 (0.0-0.4); EOSINOPHILS % 9.3 % (0.0-6.0); HEMATOCRIT 37.2 % (38.2-49.6); LYMPHOCYTES # (AUTO) 1.3 (1.0-3.2); LYMPHOCYTES % 28.2 % (18.0-39.1); MEAN CORPUSCULAR HEMOGLOBIN 31.5 pg (28-32); MEAN CORPUSCULAR HGB CONC 34.9 g/dL (31-35); MEAN CORPUSCULAR VOLUME 90.1 fL (81-99); MONOCYTES # (AUTO) 0.3 (0.2-0.8); MONOCYTES % 7.3 % (4.4-11.3); NEUTROPHILS # (AUTO) 2.4 (2.1-6.9); NEUTROPHILS % 53.7 % (38.7-80.0); PLATELET COUNT 40 x10e3/uL (140-360); RED BLOOD COUNT 4.13 x10e6/uL (4.3-5.7); RED CELL DISTRIBUTION WIDTH 13.8 % (11.7-14.4)
[2022-08-20 06:20] LABS: ALBUMIN/GLOBULIN RATIO 1.3 (0.8-2.0); ANION GAP 13.1 mmol/L (8-16); CALCIUM 9.7 mg/dL (8.4-10.2); CREATININE, SERUM 0.97 mg/dL (0.72-1.25); POTASSIUM 4.1 mmol/L (3.5-5.1)
[2022-08-20 06:28] LABS: HIV 1&2 AB SCREEN NON-REACTIVE (NONREACTIVE)
[2022-08-20] MEDS ORDERED: ONDANSETRON HCL 4 MG ORAL DISINTEGRATING TAB PO PRN (08:30)
[2022-08-20 09:00] VITALS: BP 128/62
[2022-08-20] MEDS ORDERED: CARVEDILOL 12.5 MG TAB PO SCH (09:00)
[2022-08-20] MEDS: CARVEDILOL 12.5 MG TAB PO SCH ×2 (09:00→17:00)
[2022-08-20] MEDS ORDERED: ALPRAZOLAM 0.5 MG TAB PO SCH (09:00)
[2022-08-20] MEDS: ALPRAZOLAM 0.5 MG TAB PO SCH ×2 (09:20→17:29)
[2022-08-20] MEDS: DICYCLOMINE HCL 20 MG TAB PO SCH ×2 (09:23→17:29)
[2022-08-20] MEDS: PANTOPRAZOLE SOD 40 MG TABEC PO SCH ×2 (09:23→17:29)
[2022-08-20] MEDS: AMLODIPINE BESYLATE 5 MG TAB PO SCH ×2 (09:23→17:29)
[2022-08-20 13:41] VITALS: BP 172/62
[2022-08-20 16:59] VITALS: BP 130/68
[2022-08-20] MEDS: Morphine 2mg Syringe 2 MG/ML SYR IV PRN (17:50)
[2022-08-20] MEDS: ONDANSETRON HCL INJ 2MG/ML 2ML 2 MG/ML VIAL IV PRN (17:50)
[2022-08-20] MEDS ORDERED: SODIUM CHLORIDE 0.9% 500ML 500 ML ONE (18:13)
[2022-08-20 20:00] VITALS: BP 151/89
[2022-08-20] MEDS: ATORVASTATIN 20 MG TAB PO SCH (21:34)
[2022-08-21] VITALS (7 sets, daily range): BP systolic 127–154; BP diastolic 63–84
[2022-08-21] MEDS: Morphine 2mg Syringe 2 MG/ML SYR IV PRN ×2 (00:44→06:50)
[2022-08-21] MEDS: ONDANSETRON HCL INJ 2MG/ML 2ML 2 MG/ML VIAL IV PRN ×2 (00:44→06:50)
[2022-08-21 06:51] LABS: BASOPHILS # (AUTO) 0.1 (0.0-0.1); BASOPHILS % 1.1 % (0.0-1.0); EOSINOPHILS # (AUTO) 0.3 (0.0-0.4); EOSINOPHILS % 6.2 % (0.0-6.0); HEMOGLOBIN 12.5 g/dL (14.0-18.0); MEAN CORPUSCULAR HEMOGLOBIN 32.1 pg (28-32); MEAN CORPUSCULAR HGB CONC 35.7 g/dL (31-35); MONOCYTES # (AUTO) 0.4 (0.2-0.8); MONOCYTES % 8.6 % (4.4-11.3); NEUTROPHILS # (AUTO) 2.8 (2.1-6.9); NEUTROPHILS % 62.9 % (38.7-80.0); PLATELET COUNT 58 x10e3/uL (140-360); RED BLOOD COUNT 3.89 x10e6/uL (4.3-5.7); RED CELL DISTRIBUTION WIDTH 13.8 % (11.7-14.4)
[2022-08-21 07:18] LABS: ALBUMIN 3.9 g/dL (3.5-5.0); ALBUMIN/GLOBULIN RATIO 1.3 (0.8-2.0); CALCIUM 9.2 mg/dL (8.4-10.2); CREATININE, SERUM 0.95 mg/dL (0.72-1.25)
[2022-08-21] MEDS: PANTOPRAZOLE SOD 40 MG TABEC PO SCH ×2 (09:28→17:22)
[2022-08-21] MEDS: DICYCLOMINE HCL 20 MG TAB PO SCH ×2 (09:29→17:22)
[2022-08-21] MEDS: ALPRAZOLAM 0.5 MG TAB PO SCH ×2 (09:29→17:22)
[2022-08-21] MEDS: AMLODIPINE BESYLATE 5 MG TAB PO SCH ×2 (09:29→17:23)
[2022-08-21] MEDS: CARVEDILOL 12.5 MG TAB PO SCH ×2 (09:29→17:22)
[2022-08-21] MEDS ORDERED: KETOROLAC TROMETHAMINE 30 MG/ML VIAL IM PRN (10:45)
[2022-08-21] MEDS: DOCUSATE SODIUM 100 MG CAP PO SCH ×2 (13:13→17:22)
[2022-08-21] MEDS: KETOROLAC TROMETHAMINE 30 MG/ML VIAL IM PRN (15:01)
[2022-08-21] MEDS ORDERED: HYDRALAZINE HCL 20 MG/ML VIAL IV PRN (20:45)
[2022-08-22] VITALS (7 sets, daily range): BP systolic 120–157; BP diastolic 61–82
[2022-08-22] MEDS: KETOROLAC TROMETHAMINE 30 MG/ML VIAL IM PRN ×2 (03:40→20:42)
[2022-08-22 07:21] LABS: BASOPHILS # (AUTO) 0.1 (0.0-0.1); BASOPHILS % 1.1 % (0.0-1.0); EOSINOPHILS # (AUTO) 0.3 (0.0-0.4); HEMATOCRIT 35.7 % (38.2-49.6); LYMPHOCYTES # (AUTO) 1.2 (1.0-3.2); MEAN CORPUSCULAR HEMOGLOBIN 29.7 pg (28-32); MEAN CORPUSCULAR HGB CONC 33.6 g/dL (31-35); MEAN CORPUSCULAR VOLUME 88.4 fL (81-99); MONOCYTES # (AUTO) 0.4 (0.2-0.8); MONOCYTES % 8.1 % (4.4-11.3); NEUTROPHILS # (AUTO) 2.6 (2.1-6.9); NEUTROPHILS % 57.6 % (38.7-80.0); PLATELET COUNT 56 x10e3/uL (140-360); RED BLOOD COUNT 4.04 x10e6/uL (4.3-5.7); RED CELL DISTRIBUTION WIDTH 13.2 % (11.7-14.4)
[2022-08-22 07:39] LABS: ALBUMIN 3.8 g/dL (3.5-5.0); ALBUMIN/GLOBULIN RATIO 1.2 (0.8-2.0); ANION GAP 12.2 mmol/L (8-16); CALCIUM 9.4 mg/dL (8.4-10.2); CREATININE, SERUM 1.12 mg/dL (0.72-1.25); POTASSIUM 4.2 mmol/L (3.5-5.1)
[2022-08-22] MEDS: DOCUSATE SODIUM 100 MG CAP PO SCH ×2 (08:47→17:34)
[2022-08-22] MEDS: ALPRAZOLAM 0.5 MG TAB PO SCH ×2 (08:47→17:33)
[2022-08-22] MEDS: DICYCLOMINE HCL 20 MG TAB PO SCH ×2 (08:47→17:34)
[2022-08-22] MEDS: PANTOPRAZOLE SOD 40 MG TABEC PO SCH ×2 (08:47→17:33)
[2022-08-22] MEDS: CARVEDILOL 12.5 MG TAB PO SCH ×2 (08:47→17:00)
[2022-08-22] MEDS: AMLODIPINE BESYLATE 5 MG TAB PO SCH ×2 (08:48→17:33)
[2022-08-22] MEDS: POLYETHYLENE GLYCOL 3350 17 GM PACK PO SCH ×2 (11:13→20:41)
[2022-08-23] VITALS (7 sets, daily range): BP systolic 127–161; BP diastolic 50–74
[2022-08-23 07:39] LABS: BASOPHILS # (AUTO) 0.1 (0.0-0.1); BASOPHILS % 1.5 % (0.0-1.0); EOSINOPHILS # (AUTO) 0.4 (0.0-0.4); EOSINOPHILS % 9.9 % (0.0-6.0); HEMATOCRIT 33.6 % (38.2-49.6); HEMOGLOBIN 12.3 g/dL (14.0-18.0); LYMPHOCYTES # (AUTO) 1.2 (1.0-3.2); LYMPHOCYTES % 29.4 % (18.0-39.1); MEAN CORPUSCULAR HGB CONC 36.6 g/dL (31-35); MEAN CORPUSCULAR VOLUME 90.1 fL (81-99); MONOCYTES # (AUTO) 0.3 (0.2-0.8); MONOCYTES % 8.1 % (4.4-11.3); NEUTROPHILS # (AUTO) 2.1 (2.1-6.9); NEUTROPHILS % 50.9 % (38.7-80.0); PLATELET COUNT 52 x10e3/uL (140-360); RED BLOOD COUNT 3.73 x10e6/uL (4.3-5.7); RED CELL DISTRIBUTION WIDTH 14.4 % (11.7-14.4)
[2022-08-23 07:52] LABS: ALBUMIN 3.8 g/dL (3.5-5.0); ALBUMIN/GLOBULIN RATIO 1.2 (0.8-2.0); CALCIUM 9.1 mg/dL (8.4-10.2); CREATININE, SERUM 1.03 mg/dL (0.72-1.25)
[2022-08-23] MEDS: DICYCLOMINE HCL 20 MG TAB PO SCH ×2 (09:17→17:37)
[2022-08-23] MEDS: ALPRAZOLAM 0.5 MG TAB PO SCH ×2 (09:17→17:37)
[2022-08-23] MEDS: CARVEDILOL 12.5 MG TAB PO SCH ×2 (09:18→17:37)
[2022-08-23] MEDS: PANTOPRAZOLE SOD 40 MG TABEC PO SCH ×2 (09:18→17:37)
[2022-08-23] MEDS: AMLODIPINE BESYLATE 5 MG TAB PO SCH ×2 (09:18→17:36)
[2022-08-23] MEDS: POLYETHYLENE GLYCOL 3350 17 GM PACK PO SCH ×2 (09:18→21:00)
[2022-08-23] MEDS: DOCUSATE SODIUM 100 MG CAP PO SCH ×2 (09:18→17:37)
[2022-08-23] MEDS ORDERED: SODIUM CHLORIDE 0.9% 250ML 250 ML ONE (18:38)
[2022-08-24] VITALS (7 sets, daily range): BP systolic 138–171; BP diastolic 71–88
[2022-08-24 06:16] LABS: BASOPHILS # (AUTO) 0.1 (0.0-0.1); BASOPHILS % 1.2 % (0.0-1.0); EOSINOPHILS # (AUTO) 0.4 (0.0-0.4); EOSINOPHILS % 9.8 % (0.0-6.0); HEMATOCRIT 32.6 % (38.2-49.6); HEMOGLOBIN 11.7 g/dL (14.0-18.0); LYMPHOCYTES # (AUTO) 1.1 (1.0-3.2); MEAN CORPUSCULAR HEMOGLOBIN 32.6 pg (28-32); MEAN CORPUSCULAR HGB CONC 35.9 g/dL (31-35); MEAN CORPUSCULAR VOLUME 90.8 fL (81-99); MONOCYTES # (AUTO) 0.3 (0.2-0.8); MONOCYTES % 7.6 % (4.4-11.3); NEUTROPHILS # (AUTO) 2.3 (2.1-6.9); NEUTROPHILS % 55.4 % (38.7-80.0); PLATELET COUNT 71 x10e3/uL (140-360); RED BLOOD COUNT 3.59 x10e6/uL (4.3-5.7); RED CELL DISTRIBUTION WIDTH 14.2 % (11.7-14.4)
[2022-08-24 06:32] LABS: CALCIUM 9.2 mg/dL (8.4-10.2); CREATININE, SERUM 0.94 mg/dL (0.72-1.25)
[2022-08-24] MEDS: ALPRAZOLAM 0.5 MG TAB PO SCH ×2 (09:00→17:21)
[2022-08-24] MEDS: POLYETHYLENE GLYCOL 3350 17 GM PACK PO SCH ×2 (09:00→20:17)
[2022-08-24] MEDS: PANTOPRAZOLE SOD 40 MG TABEC PO SCH ×2 (09:00→17:21)
[2022-08-24] MEDS: AMLODIPINE BESYLATE 5 MG TAB PO SCH ×2 (09:00→17:22)
[2022-08-24] MEDS: DOCUSATE SODIUM 100 MG CAP PO SCH ×2 (09:00→17:22)
[2022-08-24] MEDS: CARVEDILOL 12.5 MG TAB PO SCH ×2 (09:00→17:24)
[2022-08-24] MEDS: DICYCLOMINE HCL 20 MG TAB PO SCH ×2 (09:00→17:22)
[2022-08-24] MEDS ORDERED: HYDROMORPHONE 1MG/1ML INJ IV STA (09:20)
[2022-08-24] MEDS: ONDANSETRON HCL INJ 2MG/ML 2ML 2 MG/ML VIAL IV PRN (09:47)
[2022-08-24] MEDS: KETOROLAC TROMETHAMINE 30 MG/ML VIAL IM PRN (09:59)
[2022-08-24] MEDS ORDERED: FENTANYL CITRATE/PF 100MCG/2 ML INJ ONE (12:20)
[2022-08-24] MEDS ORDERED: ONDANSETRON HCL INJ 2MG/ML 2ML 2 MG/ML VIAL ONE (12:54)
[2022-08-24] MEDS ORDERED: POVIDONE IODINE 0.05% 0.05 % ML PO ONE (12:54)
[2022-08-24] MEDS ORDERED: LIDOCAINE HCL 2% LOCAL INJ 5 ML SDV VIAL INJ ONE (12:54)
[2022-08-24] MEDS ORDERED: PROPOFOL IV EMULSION 10 MG/ML 20 ML VIAL ONE (12:54)
[2022-08-24] MEDS ORDERED: SEVOFLURANE INHAL SOLN 250 ML PEN BTL ONE (12:54)
[2022-08-24] MEDS ORDERED: DEXAMETHASONE SOD PHOS INJ 4 MG/ML SDV ONE (12:54)
[2022-08-24] MEDS ORDERED: KETOROLAC TROMETHAMINE 30 MG/ML VIAL ONE (12:54)
[2022-08-24] MEDS ORDERED: LORAZEPAM INJ 2 MG/ML VIAL IV PRN ×2 (13:00→13:15)
[2022-08-24] MEDS ORDERED: BUPIVACAINE/EPINEPHRINE 0.5% 10 ML SDV INJ ONE (15:58)
[2022-08-24] MEDS ORDERED: LIDOCAINE 1% W/EPINEPHRINE 20 ML VIAL ONE (15:58)
[2022-08-24] MEDS ORDERED: ONDANSETRON HCL INJ 2MG/ML 2ML 2 MG/ML VIAL IV PRN (16:30)
[2022-08-24] MEDS: HYDROCODONE/APAP 7.5MG-325MG 1 EA TAB PO PRN ×2 (18:35→22:18)
[2022-08-25 00:26] VITALS: BP 146/82
[2022-08-25] MEDS: HYDROCODONE/APAP 7.5MG-325MG 1 EA TAB PO PRN ×2 (02:07→08:00)
[2022-08-25 04:29] VITALS: BP 175/72
[2022-08-25 06:01] LABS: BASOPHILS % 0.5 % (0.0-1.0); HEMATOCRIT 38.6 % (38.2-49.6); HEMOGLOBIN 13.4 g/dL (14.0-18.0); LYMPHOCYTES # (AUTO) 0.7 (1.0-3.2); LYMPHOCYTES % 12.2 % (18.0-39.1); MEAN CORPUSCULAR HEMOGLOBIN 30.1 pg (28-32); MEAN CORPUSCULAR HGB CONC 34.7 g/dL (31-35); MEAN CORPUSCULAR VOLUME 86.7 fL (81-99); MONOCYTES # (AUTO) 0.2 (0.2-0.8); MONOCYTES % 4.3 % (4.4-11.3); NEUTROPHILS # (AUTO) 4.6 (2.1-6.9); NEUTROPHILS % 82.6 % (38.7-80.0); PLATELET COUNT 100 x10e3/uL (140-360); RED BLOOD COUNT 4.45 x10e6/uL (4.3-5.7); RED CELL DISTRIBUTION WIDTH 13.6 % (11.7-14.4)
[2022-08-25 06:20] LABS: ANION GAP 14.9 mmol/L (8-16); CALCIUM 9.7 mg/dL (8.4-10.2); CREATININE, SERUM 1.05 mg/dL (0.72-1.25); POTASSIUM 3.9 mmol/L (3.5-5.1)
[2022-08-25 08:28] VITALS: BP 153/83
[2022-08-25 09:00] VITALS: BP 153/83
[2022-08-25] MEDS: ALPRAZOLAM 0.5 MG TAB PO SCH (09:15)
[2022-08-25] MEDS: AMLODIPINE BESYLATE 5 MG TAB PO SCH (09:15)
[2022-08-25] MEDS: DICYCLOMINE HCL 20 MG TAB PO SCH (09:16)
[2022-08-25] MEDS: PANTOPRAZOLE SOD 40 MG TABEC PO SCH (09:16)
[2022-08-25] MEDS: CARVEDILOL 12.5 MG TAB PO SCH (09:16)
[2022-08-25] MEDS: DOCUSATE SODIUM 100 MG CAP PO SCH (09:16)
[2022-08-25] MEDS: POLYETHYLENE GLYCOL 3350 17 GM PACK PO SCH (09:17)
[2022-08-25] MEDS ORDERED: ONDANSETRON HCL 4 MG ORAL DISINTEGRATING TAB PO PRN (09:30)
== END 2022-08-25 12:54 | disposition home or self-care (01) | DRG 803 ==
LOC: ER 10:32 → INTOOBSV 12:19 → ERHOLD 12:19 → MED/SURG2 13:24 → OBSVTOIN 08-21 13:46 → INTOOBSV 08-21 13:47 → OBSVTOIN 08-21 13:47
PROVIDERS: ADMIT Family Medicine Adult Medicine; ATTEND Family Medicine Adult Medicine
PROC: 30233R1 Transfusion of Nonautologous Platelets into Peripheral Vein, Percutaneous Approach (ICD-10-PCS; principal; 2022-08-20)
PROC: 07B50ZX Excision of Right Axillary Lymphatic, Open Approach, Diagnostic (ICD-10-PCS; 2022-08-24)
DX: D61.818 Other pancytopenia (principal); C81.94 Hodgkin lymphoma, unspecified, lymph nodes of axilla and upper limb; Z68.1 Body mass index [BMI] 19.9 or less, adult; B19.20 Unspecified viral hepatitis C without hepatic coma; I73.9 Peripheral vascular disease, unspecified; I10 Essential (primary) hypertension; K21.9 Gastro-esophageal reflux disease without esophagitis; K29.70 Gastritis, unspecified, without bleeding; E78.5 Hyperlipidemia, unspecified; F32.A Depression, unspecified; D69.6 Thrombocytopenia, unspecified; G47.00 Insomnia, unspecified; D64.9 Anemia, unspecified; I25.10 Atherosclerotic heart disease of native coronary artery without angina pectoris; R63.4 Abnormal weight loss; F41.9 Anxiety disorder, unspecified; Z85.828 Personal history of other malignant neoplasm of skin; Z90.49 Acquired absence of other specified parts of digestive tract; Z87.891 Personal history of nicotine dependence
CPT/HCPCS: 36415; 71045; 71260; 74177; 80048; 80053; 85025; 85610; 85730; 86900; 87390; 88304; 93005; 93306; 99252; 99284; G0378; G0433; G0435; J1100; J1170; J1885; J2001; J2060; J2270; J2405; J7040; J7050; P9034; Q9967